=== PATIENT | male | born 1970 | race Caucasian/White ===

== ENCOUNTER 2018-04-10 00:55 | Inpatient (IN) | payer BC ==
[2018-04-09 13:20] LABS: INR 0.96
[2018-04-10] VITALS (15 sets, daily range): BP systolic 108–133; BP diastolic 68–82
[~2018-04-10] VITALS: Ht 180.3 cm; Wt 118.8 kg
[~2018-04-10 00:55] MED LIST: ADV230RPT INH; ALBU8.5H IH; CETI-176 PO
[2018-04-10] MEDS ORDERED: fentaNYL CITR 100 MCG/2 ML AMP ONE (12:01)
[2018-04-10] MEDS ORDERED: PROPOFOL EMUL(*) 10MG/ML 20 ML 20 ML ONE (12:02)
[2018-04-10] MEDS ORDERED: LIDOCAINE 2% IV 100 MG/5ML SYR ONE (12:02)
[2018-04-10] MEDS ORDERED: LIDOCAINE/SOD BICARB 8.4% SYR ID ONE (13:45)
[2018-04-10] MEDS ORDERED: CELECOXIB 200 MG CAP PO ONE (13:45)
[2018-04-10] MEDS ORDERED: NORMOSOL R SOLN(*) 1000 ML BAG 1,000 ML IV PRN (13:45)
[2018-04-10] MEDS ORDERED: ceFAZolin(*) 2GM/D5W 50ML 50 ML IVPB ONE (13:45)
[2018-04-10] MEDS ORDERED: BACITRACIN 50000 UNIT/VIAL 100,000 UNIT in NS 0.9% 3000 ML IRRIGATION BAG 3,000 ML IR ONE (13:45)
[2018-04-10] MEDS ORDERED: TRANEXAMIC AC 1000 MG/10ML SDV 1,000 MG in DEXTROSE 5% 50 ML BAG 50 ML IV ONE (13:45)
[2018-04-10] MEDS ORDERED: FAMOTIDINE 20 MG TAB PO ONE (13:45)
[2018-04-10] MEDS ORDERED: MIDAZOLAM 2 MG/2 ML VIAL IVP PRN (13:45)
[2018-04-10] MEDS ORDERED: cloNIDine EPIDUR INJ 100MCG/ML 40 MCG, ROPIVACAINE 0.5% 20 ML VIAL 25 ML, EPINEPHrine H... INJ ONE (13:45)
[2018-04-10] MEDS ORDERED: ACETAMINOPHEN 500 MG TAB PO ONE (13:45)
[2018-04-10] MEDS ORDERED: PREGABALIN 150 MG CAPSULE PO ONE (13:45)
[2018-04-10] MEDS ORDERED: DEXAMETHASONE SOD PHOS 10MG/ML ONE (14:49)
[2018-04-10] MEDS ORDERED: ONDANSETRON 4 MG/2 ML VIAL ONE (14:49)
[2018-04-10] MEDS ORDERED: KETAMINE HCL 200 MG/20 ML MDV ONE ×2 (14:51→15:51)
[2018-04-10] MEDS ORDERED: NS 0.9% IRRIGATION 1000ML PLCT IR ONE (15:29)
[2018-04-10] MEDS ORDERED: BISACODYL 10 MG SUPP PR PRN (17:00)
[2018-04-10] MEDS ORDERED: MAGNESIUM CITRATE 300 ML BTL PO PRN (17:00)
[2018-04-10] MEDS ORDERED: ONDANSETRON 4 MG/2 ML VIAL IVP PRN (17:00)
[2018-04-10] MEDS ORDERED: MAGNESIUM HYDROXIDE* 30ML UDCP PO PRN (17:00)
[2018-04-10] MEDS ORDERED: diphenhydrAMINE 25 MG CAP PO PRN (17:00)
[2018-04-10] MEDS ORDERED: HYDROmorphone HCL 2 MG/ML SDV IVP PRN (17:00)
[2018-04-10] MEDS ORDERED: FLUSH 10 ML SYR IVP PRN (17:00)
[2018-04-10] MEDS ORDERED: LR 1000 ML BAG 1000 ML IV PRN (17:00)
[2018-04-10] MEDS ORDERED: ZOLPIDEM TARTRATE 5 MG TAB PO PRN (17:00)
[2018-04-10] MEDS ORDERED: diphenhydrAMINE 50 MG/ML VIAL IVP PRN (17:00)
[2018-04-10] MEDS ORDERED: PROMETHAZINE 25 MG/ML 1 ML AMP IVP PRN (17:00)
--- NOTE | 2018-04-10 17:07 | RADIOLOGY IMAGING REPORT ---
FACILITY: [facility] [place] PATIENT NAME: Fam Perez : 1970 MR: [id number] V: [id number] EXAM DATE: ORDERING PHYSICIAN: VERITO ENRIQUEZ TECHNOLOGIST: Location: [facility] Patient: Fam Perez : 1970 Visit/Account:[id number] Date of Sevice: 04/10/2018 Right knee Indication: Postop Comparison: Examination bilateral knees November 2017 Findings: Two views right knee are submitted. Anatomic alignment status post right total knee arthroplasty. C omponents are well seated. Expected soft tissue changes. No unexpected bony finding IMPRESSION: 1. Expected postoperative appearance right total knee arthroplasty Report Dictated By: Sanford Alcantar MD at 04/10/2018 5:03 PM Report E-Signed By: Sanford Alcantar MD at 04/10/2018 5:03 PM WSN:[id number]
--- NOTE | 2018-04-10 17:40 | OPERATIVE REPORT 1 ---
EVENT DATE: April 10, 2018 SURGEON: Real Milner MD ANESTHESIOLOGIST: Jacques Gray MD ANESTHESIA: General plus spinal anesthesia. REEFER TRUCK DRIVER: Hany Ram PA-C PREOPERATIVE DIAGNOSIS Right knee osteoarthritis. POSTOPERATIVE DIAGNOSIS Right knee osteoarthritis. PROCEDURE PERFORMED Right total knee arthroplasty. FINDINGS The patient had a significant amount of arthritic changes associated with the knee, but was amenable for total knee replacement. ESTIMATED BLOOD LOSS 200 mL DRAINS None. COMPLICATIONS None. TOURNIQUET TIME 16 minutes. It was only up during implementation and cementing of the components. IMPLANTS USED DePuy Attune posterior stabilized femur size 7 with a size 7 rotating platform tibia system from the Attune system, a 7 x 6 rotating platform posterior stabilized insert, and a 35 anatomic patella. SPECIMENS None. INDICATIONS AND HISTORY This patient is a 47-year-old male who presented to my clinic for evaluation of right knee pain and irritation going on for some time. He continued to have pain and irritation despite conservative management, and so therefore, he wanted to go ahead with a total knee replacement as he had failed all other management. We went over the risks and benefits associated with this, and informed consent was obtained at the last clinic visit. We talked about how it may not last him forever, and being 47, he is very young in order to have that, and that he will likely need a revision in the future. So therefore, we went over all the aspects of this, and he expressed understanding, and we got him set up to do this today, April 10, 2018. DESCRIPTION OF PROCEDURE As the patient was brought into the operating room, he and the procedure were both verified. He was placed supine on the operating table and induced and intubated by Anesthesia after being given a spinal by Anesthesia also. The right lower extremity was then prepped and draped in the usual fashion. A timeout was observed verifying the correct patient and procedure. The standard incision was made over the anterior aspect of the knee, and it was taken through the skin and subcutaneous tissue until I was able to get down to the medial parapatellar approach. Once I was able to get down to the medial parapatellar approach, I was able to incise through that area and then excise the patellar fat pad as well as the anterior aspects of the medial and lateral menisci. Once I was able to do this, I was then able to winsome the patella and then remove some osteophytes off this area. I then high flexed the knee and took off the ACL and the leading edge of the PCL in this area. I then drilled the central portion of the femur in order to use the [employer] intramedullary guide. I then took off 9 mm of the distal femur, measured to a size 7, and then put in the four-in-one cutting block for the 7. Once I cut all the cuts for the four-in-one cutting block, I then removed this and put on the notch block and then cut the notch without any difficulty. This was then followed by removal of some of the posterior osteophytes and also some of the rest of the rest of the PCL in this area. I then turned attention to the tibia where I was able to clean off the rest of the PCL and then the posterior aspects of the menisci on both sides. I then subluxated the patella forward, and then I used the intramedullary guide to cut 2 mm off the medial side of the tibial plateau. I did then and then measured it to a size 7 rotating platform tibia and then drilled, cut, and prepped the tibia in the standard fashion in association with this. I then removed the posterior osteophytes off the posterior aspect of the knee and then removed the rest of the medial meniscus that was hidden posteriorly to this area. I then was able to trial the components. There were no signs of problems or issues associated with the 5, but it was a touch loose, and so therefore we then put in the 6, and this had much better stability associated with it in an anterior drawer type test. I then everted the patella and cut 9 mm off the patella and then prepped the patella to a 35, trialed all components, and everything fit well. The patella tracked well, and so therefore, we then put up the tourniquet after Esmarching the leg. I then was able to cement in the components without any difficulty after washing with copious amounts of saline, which we had throughout the case with a pulsatile lavage. I also put a bone block in the distal femur. After the cement was hardened and the tourniquet was let back down, we then were able to close the medial parapatellar approach with #1 Stratafix. This was then followed by 2-0 Vicryl in the fat layer, then a 2-0 Stratafix in the subcutaneous layer, then a subcuticular 4-0 running Monocryl, and then a bio- occlusive dressing over the top. The patient was then awakened, extubated, and transferred to PACU in stable condition where he will be admitted overnight. CAMILLE
[2018-04-10] MEDS ORDERED: ALBUTEROL 8 GM INHALER INH PRN (19:40)
--- NOTE | 2018-04-10 19:45 | Hospitalist Consultation ---
History of Present Illness Requesting Physician Dr Milner Reason for Consult Management of medical comorbidities Chief Complaint R TKA History of Present Illness Thank you for the consultation and allowing us to participate in this patient's care. 47M admitted for observation after R TKA. Per operative record the surgery was uncomplicated and patient tolerated well. PMHx significant for asthma controlled with Advair and Proair. History Problems: (1) Asthma Home Meds Reported Medications Cetirizine Hcl (ZYRTEC) 10 Mg Tablet, 10 MG PO HS, TAB 02/06/18 Fluticasone/Salmeterol (ADVAIR HFA 230-21 MCG INHALER) 1 Inh Inh, 1 INH INH PRN PRN for ALLERGY SYMPTOMS, INH 02/06/18 Albuterol Sulfate 90 Mcg/Act (PROAIR HFA 90 MCG/ACT) 8.5 Gm Hfa.aer.ad, 2 PUFF IH Q4-6H PRN for ALLERGY SYMPTOMS, INHALER 02/06/18 Allergies: Coded Allergies: No Known Drug Allergies (Unverified , 02/06/18) Patient History: Asthma FATHER FH: HTN (hypertension) FATHER FH: arthritis MOTHER Hx Smoking: No Smoking Status: Never Smoker Caffeine Intake: Tea, Soda Caffeine/Cups Per Day: 2 GLASSES OF TEA DAILY, 1-2 SODAS EVERY OTHER DAY Hx Alcohol Use: No Hx Substance Use Disorder: No Social Drug Use: Never Review of Systems All Systems Reviewed/Normal: Yes, Except as Noted Respiratory: No Shortness of Breath, No Cough, No Wheezing Gastrointestinal: No Nausea, No Vomiting Exam Vital Signs Vital Signs Date Time Temp Pulse Resp B/P (MAP) Pulse Ox O2 Delivery O2 Flow Rate FiO2 04/10/18 18:15 78 16 90 04/10/18 18:10 97.6 124/79 (94) Nasal Cannula 2.0 General Appearance: Alert, Awake, No Acute Distress Neuro: No Gross deficits Eyes: PERRLA ENT: Normal Cardiovascular: Normal Rhythm & Peripheral Pulses Respiratory: No Respiratory Distress GI: Abd Soft and Non-Tender Lymph: Cervical Nodes Benign Musculoskeletal: No Weakness/Pain Extremities: Soft and Non Tender, Warm, Pulses, Perfused; No Edema Integumentary: Skin Intact without Lesion / Mass Psych: Alert & Oriented X3 Assessment and Plan Problems: (1) Osteoarthritis of right knee Assessment & Plan: Tolerated total knee arthroplasty well, appears to be progressing rapidly. Continue PT/OT anticipate discharge home in 1-2 days. (2) Asthma Assessment & Plan: On chronic Advair and Proair. Advair reportedly PRN, will schedule as this is not typically PRN medication. Venous Thromboembolism Antithrombotics Is Pt On Any Antithrombotics?: Yes ALEX WRIGHT DO Apr 10, 2018 19:45
[2018-04-10] MEDS ORDERED: ASPIRIN 325 MG TAB PO SCH (21:00)
[2018-04-10] MEDS ORDERED: CETIRIZINE HCL 10 MG TAB PO SCH (21:00)
[2018-04-10] MEDS: ceFAZolin(*) 2GM/D5W 50ML 50 ML IVPB SCH (22:51)
[2018-04-10] MEDS ORDERED: NS(*) 0.9% 250 ML BAG 250 ML ONE (22:57)
[2018-04-11] VITALS: BP 120/70
[2018-04-11 02:00] VITALS: BP 90/62
[2018-04-11 03:00] VITALS: BP 104/70
[2018-04-11] MEDS ORDERED: SALMETEROL/FLUTIC 250/50 1 INH INH SCH (06:00)
[2018-04-11 07:24] VITALS: BP 110/61
[2018-04-11] MEDS: ceFAZolin(*) 2GM/D5W 50ML 50 ML IVPB SCH (07:32)
[2018-04-11] MEDS ORDERED: OXYC-865 PO (08:38)
[2018-04-11] MEDS ORDERED: ASPI-757 PO (09:38)
--- NOTE | 2018-04-11 09:41 | Hospitalist Progress Note ---
Subjective Progress Notes Subjective He has no complaints this morning. He had no acute events overnight. Patient Complains of: Cardiovascular: No: Chest Pain Respiratory: No: Shortness of Breath Physical Exam Vital Signs Date Time Temp Pulse Resp B/P (MAP) Pulse Ox O2 Delivery O2 Flow Rate FiO2 04/11/18 07:43 93 Nasal Cannula 0.5 04/11/18 07:24 97.6 76 16 110/61 (77) Intake and Output 04/11/18 07:00 Intake Total 5560 ml Output Total 1300 ml Balance 4260 ml Intake Oral 1560 ml IV Total 2000 ml Other 2000 ml Output Urine Total 1200 ml Estimated Blood Loss 100 ml # Voids 2 General Appearance: Alert, Awake, No Acute Distress, Afebrile Neuro: No Gross deficits Cardiovascular: Regular Rate and Rhythm Respiratory: No Respiratory Distress, Clear to Auscultation GI: Soft and Non-Tender Psych: Alert & Oriented X3, Appropriate Mood & Affect Result Diagram: 04/11/18 0551 Assessment and Plan Problems: (1) Osteoarthritis of right knee Assessment & Plan: Tolerated total knee arthroplasty well, appears to be progressing rapidly. Continue PT/OT anticipate discharge home today. (2) Asthma Assessment & Plan: On chronic Advair and Proair. Advair reportedly PRN, will schedule as this is not typically PRN medication. Exam Sepsis Risk: No Definite Risk BRIJESH VIRK RRTS Apr 11, 2018 09:40
[2018-04-11 10:33] VITALS: Ht 180.3 cm; Wt 118.8 kg
[2018-04-11 10:42] VITALS: BP 114/60
== END 2018-04-11 12:30 | disposition home or self-care (01) | DRG 470 ==
LOC: OR 00:55 → MED 18:10 → OBSVTOIN 18:10 → UNDODISIN 04-11 12:30
PROVIDERS: ADMIT Orthopaedic Surgery; ATTEND Orthopaedic Surgery
PROC: 0SRC0J9 Replacement of Right Knee Joint with Synthetic Substitute, Cemented, Open Approach (ICD-10-PCS; principal; 2018-04-10 14:36)
DX: M17.11 Unilateral primary osteoarthritis, right knee (principal); J45.909 Unspecified asthma, uncomplicated; R94.31 Abnormal electrocardiogram [ECG] [EKG]; E66.9 Obesity, unspecified; Z68.36 Body mass index [BMI] 36.0-36.9, adult
CPT/HCPCS: 36415; 85014; 85018; 85610; 86850; 86900; 86901; 97161; C1713; C1776; J0171; J0690; J0735; J1100; J1885; J2001; J2250; J2405; J2704; J2795; J3010; J3490; J3535; J7050; J7060